=== PATIENT | male | born 1975 | race Caucasian/White ===

== ENCOUNTER 2019-02-07 21:57 | Emergency (ER) | payer SELFPAY ==
[2019-02-07] MEDS ORDERED: Alum Hydrox/Mag Hydrox/Simeth 30 ML, Lidocaine 2% 15 ML PO STA ×2 (23:56)
--- NOTE | 2019-02-07 23:59 | EDM.PDOC ---
ED HPI GENERAL MEDICAL PROBLEM - General Chief Complaint: Chest Pain Stated Complaint: CHEST PAINS Time Seen by Provider: 02/07/19 23:36 Source of Information: Reports: Patient, Family () History Limitations: Reports: No Limitations - History of Present Illness INITIAL COMMENTS - FREE TEXT/NARRATIVE: Mr. 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 He also reports feeling a pinching sensation between his shoulder blades, that is also a discomfort, not a pain. Neither of these discomforts radiate. Here in the emergency department, both have nearly resolved, although the patient states that they have been waxing and waning since they developed. He notes that his chest discomfort increased when he drank cold water, although he also notes that it increased even if he wasn't drinking water. At no time has he experienced nausea, dyspnea, diaphoresis, or sense of impending doom. The patient states that he has had similar symptoms, about 5 times over the past year. His symptoms usually lasted about 30 minutes, and were not as intense as they have been today. He has not previously sought medical evaluation for his symptoms. The patient states that he stopped by the EMS station and was given 2 baby aspirins around 21:00. The patient does not have a PCP, and states that he has never undergone a general physical exam. Middle Chest Pain Score (Numeric/FACES): 5 - Related Data Allergies Allergy/AdvReac Type Severity Reaction Status Date / Time No Known Allergies Allergy Verified 02/07/19 22:17 Home Meds: Home Meds Naproxen 1,500 mg PO BID 02/07/19 [History] Past Medical History Musculoskeletal History: Reports: Fracture (right clavicle fracture) Endocrine/Metabolic History: Reports: Obesity/BMI 30+ - Past Surgical History Musculoskeletal Surgical History: Reports: Arthroscopic Knee (right) Social & Family History - Tobacco Use Smoking Status *Q: Current Every Day Smoker Years of Tobacco use: 29 Packs/Tins Daily: 1 - Caffeine Use Caffeine Use: Reports: Coffee - Alcohol Use Alcohol Use History: No - Recreational Drug Use Recreational Drug Use: No - Living Situation & Occupation Living situation: Reports: , with Spouse, with Family (Son) Occupation: Employed ([employer]) ED ROS GENERAL - Review of Systems Review Of Systems: ROS reveals no pertinent complaints other than HPI. ED EXAM, GENERAL - Physical Exam Exam: See Below Exam Limited By: No Limitations General Appearance: Alert, WD/WN, No Apparent Distress Eye Exam: Bilateral Eye: EOMI, Normal Inspection Ears: Normal External Exam, Hearing Grossly Normal Nose: Normal Inspection Throat/Mouth: Normal Inspection, Normal Lips, Normal Voice, No Airway Compromise Head: Atraumatic, Normocephalic Neck: Normal Inspection, Full Range of Motion Respiratory/Chest: No Respiratory Distress, Lungs Clear, Normal Breath Sounds, No Accessory Muscle Use, Chest Non-Tender (including the sternum and medial pectoralis muscles) Cardiovascular: Normal Peripheral Pulses, Regular Rate, Rhythm, No Gallop, No JVD, No Murmur, No Rub Peripheral Pulses: 4+: Radial (L), Radial (R) GI/Abdominal: Normal Bowel Sounds, Soft, Non-Tender (including to the RUQ and epigastrium), No Organomegaly, No Distention, No Abnormal Bruit, No Mass (Male) Exam: Deferred Rectal (Males) Exam: Deferred Back Exam: Normal Inspection, Full Range of Motion, Other (No tenderness to a discreet area on the upper right back, where the patient identified his pain was ) Extremities: Normal Inspection, Normal Range of Motion, Normal Capillary Refill , Other (1-2+ pitting pretibial edema, bilaterally) Neurological: Alert, Oriented, Normal Cognition, No Motor/Sensory Deficits Psychiatric: Normal Affect Skin Exam: Warm, Dry, Intact, Normal Color, No Rash EKG INTERPRETATION EKG Date: 02/07/19 Time: 22:08 Rhythm: NSR Rate (Beats/Min): 88 [place]: Normal P-Wave: Enlarged (Probable PEDRO) QRS: Normal (Late transition) ST-T: Normal QT: Normal Comparison: NA - No Prior EKG Course - Vital Signs Last Recorded V/S: Last Vital Signs Temp 36.6 C 02/07/19 22:10 Pulse 88 02/07/19 22:10 Resp 24 H 02/07/19 22:10 BP 160/101 H 02/07/19 22:10 Pulse Ox 95 02/07/19 22:10 - Orders/Labs/Meds Labs: Laboratory Tests 02/07/19 02/07/19 02/07/19 Range/Units 22:21 22:21 22:21 WBC 15.59 H (4.23-9.07) K/mm3 RBC 4.91 (4.63-6.08) M/mm3 Hgb 14.2 (13.7-17.5) gm/L Hct 44.2 (40.1-51.0) % MCV 90.0 (79.0-92.2) fl MCH 28.9 (25.7-32.2) pg MCHC 32.1 L (32.2-35.5) g/dl RDW Std Deviation 48.0 H (35.1-43.9) fL Plt Count 231 (163-337) K/mm3 MPV 10.9 (9.4-12.3) fl Neutrophils % (Manual) 69 H (40-60) % Band Neutrophils % 0 (0-10) % Lymphocytes % (Manual) 22 (20-40) % Atypical Lymphs % 0 % Monocytes % (Manual) 7 (2-10) % Eosinophils % (Manual) 2 (0.8-7.0) % Basophils % (Manual) 0 L (0.2-1.2) Platelet Estimate Adequate Plt Morphology Comment Normal RBC Morph Comment Normal D-Dimer, Quantitative 0.35 (0.19-0.50) mg/L Sodium 141 (136-145) mEq/L Potassium 3.9 (3.5-5.1) mEq/L Chloride 108 H (98-107) mEq/L Carbon Dioxide 27 (21-32) mEq/L Anion Gap 9.9 (5-15) BUN 21 H (7-18) mg/dL Creatinine 0.9 (0.7-1.3) mg/dL Est Cr Clr Drug Dosing 110.39 mL/min Estimated GFR (MDRD) > 60 (>60) mL/min BUN/Creatinine Ratio 23.3 H (14-18) Glucose 103 (74-106) mg/dL Calcium 8.9 (8.5-10.1) mg/dL Total Bilirubin 0.3 (0.2-1.0) mg/dL AST 20 (15-37) U/L ALT 38 (16-63) U/L Alkaline Phosphatase 101 (46-116) U/L Troponin I < 0.017 (0.00-0.056) ng/mL Total Protein 7.3 (6.4-8.2) g/dl Albumin 3.6 (3.4-5.0) g/dl Globulin 3.7 gm/dL Albumin/Globulin Ratio 1.0 (1-2) Meds: Medications Discontinued Medications Generic Name Dose Route Start Last Admin Trade Name Toña PRN Reason Stop Dose Admin Al Hydroxide/Mg Hydroxide 30 0 ml 02/07/19 23:56 02/08/19 00:01 ml/ Lidocaine HCl 15 ml PO 02/07/19 23:57 45 ml ONETIME STA Administration - Re-Assessments/Exams Free Text/Narrative Re-Assessment/Exam: 02/07/19 23:57 The patient's history is not really consistent with angina. Because his pain is worsened with cold water, I suspect that his pain is gastrointestinal in etiology (although not likely due to esophageal spasm, as that condition is rare and the pain usually excruciating). I have ordered a GI cocktail to see if it modifies his current residual pain at all. In the meantime, a workup has been ordered that includes blood work and a chest x-ray. His ECG, obtained by triage, is unremarkable. 02/08/19 00:25 2-view chest radiograph reviewed. The cardiac silhouette is at the upper limits of normal, but there is no pulmonary vascular congestion or pleural effusions to suggest decompensated CHF. The horizontal fissure is visible. No focal infiltrate. No pneumothorax. Formal read per the Radiologist pending. 02/08/19 01:11 Test results discussed with the patient and his . The patient's CBC is marked for a WBC count elevated at 15.59, but with 0% bandemia. The remainder of the CBC is unremarkable. His CMP is remarkable for chloride slightly elevated at 108, and a BUN slightly elevated at 21, with a normal creatinine. The remainder of his CMP is unremarkable. His troponin is undetectably low. His D-dimer is within normal limits at 0.35. The patient reports that other than numbing his throat, he had no chest or back relief of discomfort following the GI cocktail. The etiology of the patient's pain is unclear. It does not appear to be cardiac , although I cannot say that the patient does not have underlying coronary artery disease. He probably does, given his history. I think he can safely be discharged home, but I am recommending that he follow-up with a PCP that I can refer him to, for a thorough general physical exam that may include a cardiac stress test. Additionally, I suggested that he strongly consider quitting smoking. He said he will consider both. Departure - Departure Time of Disposition: 01:13 Disposition: Home, Self-Care 01 Condition: Good Clinical Impression: Chest pain of uncertain etiology - Discharge Information *PRESCRIPTION DRUG MONITORING PROGRAM REVIEWED*: Not Applicable *COPY OF PRESCRIPTION DRUG MONITORING REPORT IN PATIENT SANDY: Not Applicable Instructions: Nonspecific Chest Pain, [id number] Referrals: Marquise Morel MD [Physician] - Forms: ED Department Discharge Additional Instructions: You were seen in the emergency room after developing chest tightness and a pinching-like sensation in your upper right back. Workup in the ER included blood work, a chest x-ray, and an ECG. Your entire workup was unremarkable, and does not explain the cause of your symptoms. You have not had a heart attack. You do not have a blood clot in your lungs. You do not have pneumonia or a collapsed lung. We strongly recommend that you consider quitting smoking. We also strongly recommend that you follow-up with Dr. Marquise Sorensen, or one of the other providers in the clinic, to get a thorough physical exam, that may include a cardiac stress test. If any other problems, please do not hesitate to return to the ER.
--- NOTE | 2019-02-10 09:28 | CR ---
Chest: Two views of the chest were obtained. Comparison: No previous chest x-ray. Heart size and mediastinum are normal. Lungs are clear with no acute parenchymal change. Bony structures show nothing acute. Impression: 1. Nothing acute is seen on two-view chest x-ray. Diagnostic code #1
== END 2019-02-08 01:20 | disposition home or self-care (01) ==
LOC: JD.ED 21:57 → EDBD 21:57 → JD.ED 02-08 01:20
DX: R07.89 Other chest pain (principal); F17.210 Nicotine dependence, cigarettes, uncomplicated; E66.9 Obesity, unspecified; Z68.41 Body mass index [BMI] 40.0-44.9, adult
CPT/HCPCS: 36415; 71046; 80053; 84484; 85007; 85027; 85379; 93005; 99285; A9270; 93010; 99283

== ENCOUNTER 2023-11-29 07:40 | Day surgery (SDC) | payer SELFPAY ==
[~2023-11-29 07:40] MED LIST: Sodium Chloride 0.9% 10 ML Syringe FLUSH PRN; Sodium Chloride 0.9% 10 ML Syringe FLUSH SCH
[2023-11-29] MEDS: Lactated Ringers 1,000 ML IV SCH (08:00)
[2023-11-29] MEDS ORDERED: Lidocaine 1% 4 ML ONE (08:54)
[2023-11-29] MEDS ORDERED: Ondansetron 4 MG/2 ML SDV ONE (08:54)
[2023-11-29] MEDS ORDERED: Propofol 200 MG/20 ML SDV ONE ×2 (08:54→10:27)
[2023-11-29] MEDS ORDERED: Midazolam 1 MG/ML 2 ML SDV ONE (08:54)
[2023-11-29] MEDS ORDERED: Dexamethasone 4 MG/ML 5 ML MDV ONE (08:54)
[2023-11-29] MEDS ORDERED: fentaNYL 100 MCG/2 ML SDV ONE ×2 (08:55→10:44)
[2023-11-29] MEDS ORDERED: Ketorolac 15 MG/ML SDV ONE ×2 (08:57)
[2023-11-29] MEDS ORDERED: ceFAZolin 2 GM Vial ONE (10:40)
[2023-11-29] MEDS ORDERED: ceFAZolin 1 GM Vial ONE (10:47)
[2023-11-29] MEDS: EPINEPHrine 1 MG/ML SDV ONE (10:54)
[2023-11-29] MEDS: Bupivacaine 0.25% 10 ML SDV ONE (10:54)
[2023-11-29] MEDS ORDERED: HYDROmorphone 0.5 MG/0.5 ML Syringe ONE ×2 (10:55)
[2023-11-29] MEDS ORDERED: dexmedeTOMIDine HCl 200 MCG/2 ML SDV ONE (10:58)
[2023-11-29] MEDS ORDERED: HYDROmorphone 0.5 MG/0.5 ML Syringe IVPUSH PRN (11:30)
[2023-11-29] MEDS ORDERED: fentaNYL 100 MCG/2 ML SDV IVPUSH PRN (11:30)
[2023-11-29] MEDS: Acetaminophen/HYDROcodone 325-5 MG Tab PO PRN (12:57)
== END 2023-11-29 13:07 | disposition home or self-care (01) ==
LOC: JD.SDS 07:40
PROVIDERS: ATTEND Orthopaedic Surgery
DX: M94.262 Chondromalacia, left knee (principal); E66.9 Obesity, unspecified; Z79.82 Long term (current) use of aspirin; Z79.899 Other long term (current) drug therapy
CPT/HCPCS: 29999; A9270; J0171; J0665; J0690; J1100; J1170; J1885; J2250; J2405; J2704; J3010; J7120; 01400; J3490